=== PATIENT | male | born 1960 | race Caucasian/White ===

== ENCOUNTER → 2018-07-26 | Outpatient (CLI) | payer BC ==
--- NOTE | 2018-07-26 11:41 | KCIC ---
MRI Cervical Spine Without Contrast History: Chronic neck and back pain, right-sided headaches, right shoulder pain Technique: Multiplanar, multi sequential noncontrast MR imaging was performed of the cervical spine. Comparison: July 19, 2012 Findings: There is some motion degradation, somewhat limits accurate evaluation of the neural foramina on the axial images. Cervical cord caliber is within normal limits without convincing focal signal abnormality allowing for motion artifact. There is no new significant abnormality cervical medullary junction. Cervical vertebral body stature is overall maintained. AP alignment is within normal limits. There are small posterior annular tears C3-4, C5-6, C6-7, also anteriorly at C5-6. There is again small hemangioma of the C7 vertebral body. There is again mild disc desiccation throughout the cervical spine, progression of mild narrowing of the C6-7 intervertebral disc space. C2-C3: There is moderate to severe left facet degenerative change. Spinal canal and right neural foramen are adequate, moderate to severe narrowing of the left neural foramen. C3-C4: There is again minimal disc osteophyte complex and bulge, central canal adequate about 11 mm. There is severe left facet hypertrophic change. There is left uncovertebral degenerative change. There is severe narrowing of the left neural foramen probably greater in interval. The right neural foramen is overall adequate. C4-C5: There is again minimal disc osteophyte complex and bulge. Central canal is adequate about 11 mm. There is bilateral facet hypertrophic change. The right neural foramen is adequate, probable at least moderate narrowing of the left neural foramen. C5-C6: There is again minimal disc osteophyte complex and bulge, central canal adequate about 11 mm. There is mild facet degenerative change. Neural foramina are overall adequate. C6-C7: There is again minimal disc osteophyte complex and bulge/protrusion with mild indentation upon the ventral thecal sac, central canal minimally narrowed to about 9 mm. There is minimal left uncovertebral degenerative change. Right neural foramen is adequate, probable mild narrowing of the left neural foramen. C7-T1: Spinal canal is adequate. There is facet degenerative change, minimal left uncovertebral change. There is very mild narrowing of the left neural foramen, right neural foramen adequate. Impression: 1. There is mild spinal stenosis C6-7 as seen previously. There is multilevel facet and uncovertebral degenerative change contributing to neural foramina compromise as stated, more significant narrowing on the left at C2-3 and C3-4 and to a somewhat lesser degree on the left at C4-5. There is again multilevel mild spondylosis. There is mild degenerative disc disease C6-7, mild disc desiccation at other levels. Electronically signed by: Jarod Olson MD (07/26/2018 11:38 AM) [email or web address]
--- NOTE | 2018-07-26 11:48 | KCIC ---
MRI Thoracic Spine without contrast History: Chronic neck and back pain, mid thoracic spine pain Technique: Multiplanar, multi sequential noncontrast MR imaging was performed of the thoracic spine. Comparison: None Findings: Thoracic cord caliber is within normal limits without significant focal signal abnormality. Thoracic vertebral body stature is mostly maintained other than multilevel small Schmorl's nodes. There is no significant marrow edema. AP alignment is preserved other than negligible anterior spondylolisthesis T7-8. There are small hemangiomas T9 and T10 vertebral bodies. There is multilevel overall mild degenerative disc disease other than relative sparing of superior thoracic levels T1-2 through T3-4. There is buckling of the ligamentum flavum greatest T9-10, T10-11, T11-12. There is no significant thoracic spinal stenosis at any level. There is no significant focal posterior disc abnormality. There is multilevel mild posterior epidural lipomatosis. There is mild posterior narrowing of the left T10-11 neural foramen by facet degenerative change and buckling of the ligamentum flavum, also minimal narrowing on the right at T8-T9, T10-11, and T11-12. Impression: 1. There is no significant thoracic spinal stenosis. There is multilevel mild degenerative disc disease. There is minimal neural foramina compromise as stated. Electronically signed by: Jarod Olson MD (07/26/2018 11:44 AM) [email or web address]
--- NOTE | 2018-07-26 12:02 | KCIC ---
MRI Lumbar Spine without contrast History: Chronic back pain, bilateral leg numbness, right hip pain Technique: Multiplanar, multi sequential noncontrast MR imaging was performed of the lumbar spine. Comparison: None Findings: Lumbar vertebral body stature is maintained. There is negligible posterior subluxation L5 relative to S1, L4 relative to L5, and L3 relative to L4. There is moderate to severe degenerative disc disease L5-S1, moderate degenerative disc disease greater on the right at L4-5, and minimal degenerative disc disease at L3-4. Conus terminates at L1-2. There is no significant marrow edema. There are posterior annular tears L3-4 through L5-S1. L1-L2: Spinal canal and neural foramina are adequate. L2-L3: Neural foramina and spinal canal are adequate. There is mild facet hypertrophic change. L3-L4: There is minimal posterior bulge. There is mild buckling of the ligamentum flavum. There is mild narrowing of the far left lateral recess. There is minimal narrowing of the inferior left neural foramen, right neural foramen overall adequate. Disc osteophyte complex and bulge is near the proximal extraforaminal left L3 nerve root without significant impingement. L4-L5: There is minimal disc osteophyte complex and bulge. There is mild buckling of the ligamentum flavum. There is mild right facet hypertrophic change. There is very mild narrowing of the far lateral recesses bilaterally without significant impingement of the descending L5 nerve roots. There is [id number] left and severe right neural foramina compromise, impingement of the exiting right L4 nerve root due to disc osteophyte complex and facet hypertrophic change. L5-S1: There is moderate facet degenerative change and buckling of the ligamentum flavum. Spinal canal is overall adequate. There is moderate left and moderate to severe right neural foramina compromise, narrowing of the right neural foramen due to disc osteophyte complex and facet degenerative change. Impression: 1. There is severe narrowing of the right L4-5 neural foramen with impingement exiting right L4 nerve root, also moderate to severe narrowing on the right at L5-S1. There is a lesser degree of moderate narrowing of the left L5-S1 and L4-5 neural foramina. 2. There is no significant lumbar spinal stenosis, minimal narrowing of the far left lateral recess at L3-4 and very mild narrowing of the far lateral recesses bilaterally at L4-5. 3. There is moderate to severe degenerative disease L5-S1, to lesser degree at L4-5, and minimally at L3-4. There is mild abnormal alignment at these levels as stated, multilevel facet degenerative change. Electronically signed by: Jarod Olson MD (07/26/2018 11:58 AM) [facility]
== END | disposition home or self-care (01) ==
LOC: KCIC MRI 08:07
PROVIDERS: ATTEND Family Medicine
DX: M50.323 Other cervical disc degeneration at C6-C7 level (principal); M48.02 Spinal stenosis, cervical region; M47.892 Other spondylosis, cervical region; M25.78 Osteophyte, vertebrae; D18.09 Hemangioma of other sites; M51.34 Other intervertebral disc degeneration, thoracic region; M48.061 Spinal stenosis, lumbar region without neurogenic claudication; M51.37 Other intervertebral disc degeneration, lumbosacral region; M48.07 Spinal stenosis, lumbosacral region; G89.29 Other chronic pain
CPT/HCPCS: 72141; 72146; 72148

== ENCOUNTER → 2018-08-26 | Outpatient (CLI) | payer BC ==
[~2018-08-26] MED LIST: BENA40TA15 PO; CYCL10TA2 PO; HYDR-2145 PO; HYDR-2761 PO; IOHEXOL 180 MG/ML 10 ML VIAL. ONE; MELO15TA23 PO; methylPREDNISolone ACETATE 40 MG/ML VIAL. ONE; methylPREDNISolone ACETATE 80 MG/ML VIAL. ONE
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
== END | disposition home or self-care (01) ==
LOC: PNCL 10:11
PROVIDERS: ATTEND Anesthesiology
DX: M50.123 Cervical disc disorder at C6-C7 level with radiculopathy (principal); M48.02 Spinal stenosis, cervical region; I10 Essential (primary) hypertension; M19.90 Unspecified osteoarthritis, unspecified site; Z85.828 Personal history of other malignant neoplasm of skin; Z98.890 Other specified postprocedural states; Z79.899 Other long term (current) drug therapy; Z72.89 Other problems related to lifestyle
CPT/HCPCS: 62321; J1030; J1040; Q9965

== ENCOUNTER → 2018-09-16 | Outpatient (CLI) | payer BC ==
[~2018-09-16] MED LIST changes: -IOHEXOL 180 MG/ML 10 ML VIAL. ONE; -methylPREDNISolone ACETATE 40 MG/ML VIAL. ONE; -methylPREDNISolone ACETATE 80 MG/ML VIAL. ONE
--- NOTE | 2018-09-16 11:47 | PAIN ---
DATE OF SERVICE: 09/16/2018 DIAGNOSES: Cervical radiculopathy with cervical degenerative disk disease and cervical spinal stenosis. HISTORY OF PRESENT ILLNESS: The patient is a 58-year-old male who returns for followup status post cervical epidural steroid injection x 1. The patient reports about 40% improvement after the first injection in the pain in his neck and right upper extremity. The patient reports that he had significant chest pain, and we talked to him a few days after the injection on the phone with significant chest pain, which subsided after about a day or two, but may have had this happened before the previous steroid injection he had in the past. The patient reports the pain is better, took the edge off. He is sleeping better, increased his activity with greater ease and comfort, doing work activities as well as household activity with greater ability and comfort. The patient reports his pain is still about a 7 on a scale of 10 at all times, average, worst and least. The patient reports a sharp, shooting, aching in the base of the neck, right upper extremity, right shoulder, right trapezius, right bicep and into the forearm and hand with some tingling as well at times. The patient reports no new motor or sensory deficits, no new bowel or bladder incontinence or other complaints. PHYSICAL EXAMINATION: VITAL SIGNS: The patient's blood pressure is 154/90, pulse 76, respirations 16, temperature 98.8 degrees Fahrenheit, weight is 275 pounds. GENERAL: The patient is awake, alert, oriented, appropriate, very pleasant demeanor. HEENT: Head is normocephalic, atraumatic. Extraocular movements are intact and symmetrical. Oral cavity: Mucous membranes are moist and pink. Dentition is intact. NECK: Shows anterior throat supple without palpable lymphadenopathy noted. Swallow reflex symmetrical. CHEST: Shows normal with inspection. Breath sounds clear to auscultation bilaterally. HEART: Shows S1, S2 clear. No murmurs auscultated. ABDOMEN: Soft, nontender, nondistended. No palpable organomegaly is noted. No rebound or guarding demonstrated. BACK: Shows spine grossly in the midline. The patient's neck shows good rotational motion of cervical spine. Cervical paraspinous muscle shows symmetrical on inspection, on palpation shows some moderate tenderness but only diffusely bilaterally without radiation. The patient has good rotational motion both laterally as well as extension and flexion without difficulty. EXTREMITIES: Upper extremities show deep tendon reflexes at 2+ in the biceps, triceps tendons. Motor exam is strong with 5/5 school photographer strength, bicep and tricep flexion and symmetrical. Peripheral pulses are 1+ posterior tibia. No peripheral edema is noted bilaterally. PLAN: Options were discussed with the patient. The patient's old chart was reviewed as his current medication regimen updated. Current review of systems updated today as well. We will hold on any further injections at this time. The patient is following up with his primary care physician regarding his blood pressure in approximately one week, and we will follow up after that with any recommendations as it has been elevated in the past and recently as well. The patient will follow up once he has visited with his primary physician per his request, and we will discuss potential of further injections that could decrease his radicular symptoms in the right upper extremity at that time. BRANDON HORNE MD DR: ZACKERY/[facility]iva JOB#: [id number] / [id number]
== END | disposition home or self-care (01) ==
LOC: PNCL 07:35
PROVIDERS: ATTEND Anesthesiology
DX: M50.10 Cervical disc disorder with radiculopathy, unspecified cervical region (principal); M48.02 Spinal stenosis, cervical region
CPT/HCPCS: G0463

== ENCOUNTER → 2020-06-17 | Outpatient (CLI) | payer OTHER ==
--- NOTE | 2020-06-17 08:48 | RAD ---
CT CHEST WO CONTRAST INDICATION: Lung mass. COMPARISON STUDY: None. TECHNIQUE: Unenhanced axial images were obtained through the lungs and upper abdomen. Coronal and sagittal multiplanar reconstructions were also obtained. PQRS compliance statement: One or more of the following individualized dose reduction techniques were utilized for this examination: 1. Automated exposure control 2. Adjustment of the mA and/or kV according to patient size 3. Use of iterative reconstruction technique FINDINGS: Lungs and Airways: No pulmonary mass or consolidation. There are a couple of indeterminate pulmonary nodules with group sales representative nodules as follows: Left lower lobe 8 mm solid pulmonary nodule (series 3 image 23) and left upper lobe 5 mm solid pulmonary nodule (image 26). Normal central airways. Pleura: The pleural spaces are normal. Heart and Mediastinum: The visualized thyroid gland is normal in size and attenuation. No axillary or supraclavicular lymphadenopathy. No mediastinal lymphadenopathy. Evaluation for hilar lymphadenopathy impaired by lack of intravenous contrast. The heart and pericardium are within normal limits. The great vessels of the thorax are normal. Abdomen: The visualized abdominal organs demonstrate no abnormality. Bones and Soft Tissues: Multilevel degenerative changes of the spine. IMPRESSION: 1. There are a couple of indeterminate pulmonary nodules, largest measuring 8 mm. Recommend 3-6 month follow-up unenhanced chest CT to assess nodule growth. 2. No pulmonary mass or consolidation. Electronically signed by: Jarod Heredia MD (06/17/2020 8:45 AM) [id number]
== END ==
LOC: CT 09:08
PROVIDERS: ATTEND General Practice
DX: R91.8 Other nonspecific abnormal finding of lung field (principal)
CPT/HCPCS: 71250